=== PATIENT | female | born 1980 | race Caucasian/White ===

== ENCOUNTER 2022-03-31 20:11 | Emergency (ER) | payer SELFPAY ==
--- NOTE | 2022-03-31 21:00 | NUR ---
PATIENT WAS CALLED TO BE TRIAGED BUT WAS NOT PRESENT IN THE WAITING ROOM OR OUTSIDE OF ER.
--- NOTE | 2022-03-31 22:00 | NUR ---
PATIENT WAS CALLED TO BE TRIAGED BUT WAS NOT PRESENT IN THE WAITING ROOM OR OUTSIDE OF ER. PATIENT WAS NOT TRIAGED OR SEEN BY ERMD.
== END 2022-03-31 22:00 | disposition left against medical advice (07) ==
LOC: ER 20:18
DX: Z53.21 Procedure and treatment not carried out due to patient leaving prior to being seen by health care provider (principal)